=== PATIENT | male | born 1955 | race Caucasian/White ===

== ENCOUNTER → 2016-05-15 | Outpatient (CLI) | payer BC ==
[2016-05-15 07:50] LABS: Cholesterol 222 mg/dL (<200); HDL Cholesterol 36 mg/dL (40-60)
[2016-05-15 08:04] LABS: Triglycerides 634 mg/dL (<150)
== END ==
LOC: LABWHC1 06:54
PROVIDERS: ATTEND Internal Medicine Endocrinology, Diabetes & Metabolism
DX: E11.65 Type 2 diabetes mellitus with hyperglycemia (principal)
CPT/HCPCS: 36415; 80061

== ENCOUNTER → 2016-12-29 | Outpatient (CLI) | payer BC ==
[2016-12-29 09:05] LABS: Cholesterol 217 mg/dL (<200); Glucose 199 mg/dL (74-99); Total Protein 7.5 g/dL (6.3-8.2)
[2016-12-29 09:06] LABS: ALT 36 U/L (21-72); AST 22 U/L (17-59); Alkaline Phosphatase 99 U/L (38-126); Anion Gap 10 mmol/L; Blood Urea Nitrogen 18 mg/dL (9-20); Calcium 10.2 mg/dL (8.4-10.2); Carbon Dioxide 24 mmol/L (22-30); Chloride 104 mmol/L (98-107); HDL Cholesterol 37 mg/dL (40-60); Non-African American GFR(MDRD) >60 (>60 ml/min/1.73 sqM); Potassium 5.4 mmol/L (3.5-5.1); Sodium 138 mmol/L (137-145); Total Bilirubin 0.3 mg/dL (0.2-1.3)
[2016-12-29 16:45] LABS: Urine Creatinine 72.8 mg/dL
== END | disposition home or self-care (01) ==
LOC: LABWHC1 08:20
PROVIDERS: ATTEND Internal Medicine Endocrinology, Diabetes & Metabolism
DX: E11.65 Type 2 diabetes mellitus with hyperglycemia (principal)
CPT/HCPCS: 36415; 80053; 80061; 82043; 82570

== ENCOUNTER → 2017-05-08 | Outpatient (CLI) | payer OTHER ==
[2017-05-08 08:28] LABS: ALT 33 U/L (21-72); AST 28 U/L (17-59); Albumin 4.2 g/dL (3.5-5.0); Alkaline Phosphatase 137 U/L (38-126); Anion Gap 12 mmol/L; Blood Urea Nitrogen 11 mg/dL (9-20); Calcium 9.8 mg/dL (8.4-10.2); Carbon Dioxide 22 mmol/L (22-30); Chloride 104 mmol/L (98-107); Cholesterol 186 mg/dL (<200); Glucose 219 mg/dL (74-99); HDL Cholesterol 28 mg/dL (40-60); Potassium 4.8 mmol/L (3.5-5.1); Sodium 138 mmol/L (137-145); Total Bilirubin 0.2 mg/dL (0.2-1.3); Total Protein 6.9 g/dL (6.3-8.2)
[2017-05-08 08:41] LABS: Triglycerides 563 mg/dL (<150)
[2017-05-08 18:35] LABS: Hemoglobin A1C 8.8 % (4.0-6.0)
== END | disposition home or self-care (01) ==
LOC: LABWHC1 07:18
PROVIDERS: ATTEND Internal Medicine Endocrinology, Diabetes & Metabolism
DX: E11.65 Type 2 diabetes mellitus with hyperglycemia (principal); I10 Essential (primary) hypertension
CPT/HCPCS: 36415; 80053; 80061; 82043; 82570; 83036

== ENCOUNTER 2017-09-01 13:52 | Emergency (ER) | payer OTHER ==
[2017-09-01 14:11] VITALS: RESP 18
[2017-09-01] MEDS ORDERED: FAMOTIDINE 20 MG/2 ML VIAL IV STA (14:30)
[2017-09-01] MEDS ORDERED: diphenhydrAMINE 50 MG/ML 1 ML VIAL IVP STA (14:30)
[2017-09-01] MEDS ORDERED: SODIUM CHLORIDE 0.9% 500 ML IV STA (14:31)
--- NOTE | 2017-09-01 14:35 | ED ---
General Adult HPI - General Chief complaint: Recheck/Abnormal Lab/Rx Stated complaint: Bee sting/Rash/cant hear Source: patient Mode of arrival: ambulatory Limitations: no limitations - History of Present Illness Initial comments: Dictation was produced using [employer] dictation software. please excuse any grammatical, word or spelling errors. Chief Complaint: 61-year-old male with past medical history of bee venom ALLERGY presents after bee sting. History of Present Illness: Patient is a 61-year-old male who was stung by a bee earlier today while working outdoors. Patient is ALLERGIC to be stings. He states he was stung by a bee last year where he expense a severe reaction. He was told he was supposed to get an EpiPen however has not gotten 1. Today he was working outdoors By the Bee. Patient Began Having Urticarial Rash That Was Pruritic. He Was Stung on the Leg. He Went to Urgent Care Prior to Arriving Here Where He Was Given 125 Mg of IM Solu-Medrol Told to Come Here for Tachycardia. Patient Denies Any Shortness of Breath. Denies Any Lightheadedness. Denies Ever Having Had anaphylaxis after the sting in the past. The ROS documented in this emergency department record has been reviewed and confirmed by me. Those systems with pertinent positive or negative responses have been documented in the HPI. All other systems are other negative and/or noncontributory. - Related Data Home Medications Medication Instructions Recorded Confirmed INSULIN LISPRO (HumaLOG) [HumaLOG] 10 units SQ AC-TID 09/01/17 09/01/17 Insulin Glargine,Hum.rec.anlog 52 unit SQ HS 09/01/17 09/01/17 [Lantus Solostar] Lisinopril [Zestril] 20 mg PO DAILY 09/01/17 09/01/17 Pioglitazone HCl [Actos] 15 mg PO DAILY 09/01/17 09/01/17 metFORMIN HCL [Glucophage] 500 mg PO BID 09/01/17 09/01/17 Previous Rx's Medication Instructions Recorded EPINEPHrine [Epipen 2-Leonardo] 0.3 mg IM ONCE PRN #1 pack 09/01/17 Allergies Allergy/AdvReac Type Severity Reaction Status Date / Time bee venom protein (honey bee) Allergy Rash/Hives Verified 09/01/17 14:24 Review of Systems ROS Statement: Those systems with pertinent positive or pertinent negative responses have been documented in the HPI. ROS Other: All systems not noted in ROS Statement are negative. Past Medical History Past Medical History: Diabetes Mellitus, Hyperlipidemia, Hypertension History of Any Multi-Drug Resistant Organisms: None Reported Past Surgical History: Orthopedic Surgery Additional Past Surgical History / Comment(s): carpal tunnel and trigger thumb release. Left index finger tip off. Past Psychological History: No Psychological Hx Reported Smoking Status: Current every day smoker Past Alcohol Use History: Rare Past Drug Use History: None Reported General Exam - General Exam Comments Initial Comments: PHYSICAL EXAM: General Impression: Alert and oriented x3, not in acute distress HEENT: Normocephalic atraumatic, extra-ocular movements intact, pupils equal and reactive to light bilaterally, mucous membranes moist. Cardiovascular: Heart regular rate and rhythm, S1&S2 audible, no murmurs, rubs or gallops Chest: Lungs clear to auscultation bilaterally, no rhonchi, no wheeze, no rales Abdomen: Bowel sounds present, abdomen soft, non-tender, non-distended, no organomegaly Musculoskeletal: Pulses present and equal in all extremities, no peripheral edema Motor: Power 5/5 bilaterally, no focal deficits noted Neurological: CN II-XII grossly intact, no focal motor or sensory deficits noted Skin: Diffuse urticarial rash over extremities, abdomen and back Psych: Normal affect and mood Limitations: no limitations Course Vital Signs 09/01/17 09/01/17 09/01/17 14:06 14:22 14:48 Temperature 98.2 F Pulse Rate 123 H 111 H Respiratory 18 18 18 Rate Blood Pressure 106/71 O2 Sat by Pulse 97 97 Oximetry Medical Decision Making - Medical Decision Making ED course: 61-year-old male presenting with ALLERGIC reaction after bee sting. He was given corticosteroids at urgent care prior to arrival. He was told to come to the emergency department for tachycardia. Vital signs upon arrival shows heart rate of 123, blood pressure 106/71, respiratory signs within normal limits. Patient is well-appearing at this time. Patient not showing any signs of anaphylactic shock. No wheezing, no upper airway compromise, no stridulous breathing, blood pressure is within acceptable limits. He is mentating properly. EpiPen will be withheld at this time. He will receive antihistamine IV medications and intravenous fluids. Patient be observed in emergency department for improvement of symptoms. Patient reevaluated and found to have improved skin examination. Patient feels well. Patient's heart rate is improved to the 100s. Patient states that he has not been drinking water and has been working outdoors and tachycardia likely to be multifactorial secondary to dehydration. Patient told to hydrate himself appropriately at home. He is not nauseous and tolerate fluids at home. Patient prescription for EpiPen. He is counseled on appropriate administration. Patient warned of delayed ALLERGIC reaction should he experience any symptoms of anaphylaxis to return to the emergency department. Told to avoid bees. Disposition Clinical Impression: Allergic reaction Disposition: HOME SELF-CARE Condition: Good Instructions: Insect Bite or Sting (ED) Prescriptions: EPINEPHrine [Epipen 2-Leonardo] 0.3 mg IM ONCE PRN #1 pack PRN Reason: Anaphylaxis Is patient prescribed a controlled substance at d/c from ED?: No Referrals: Blake Hough MD [Primary Care Provider] - 1-2 days Time of Disposition: 15:54
[2017-09-01 16:16] VITALS: BP 119/55; PULSE 110; TEMP 98.9
== END 2017-09-01 16:14 | disposition home or self-care (01) ==
LOC: EC 13:52
DX: T63.441A Toxic effect of venom of bees, accidental (unintentional), initial encounter (principal); L50.9 Urticaria, unspecified; I10 Essential (primary) hypertension; E11.9 Type 2 diabetes mellitus without complications; F17.200 Nicotine dependence, unspecified, uncomplicated; Z79.4 Long term (current) use of insulin; Z79.899 Other long term (current) drug therapy; Z91.018 Allergy to other foods; Y93.89 Activity, other specified; Y92.89 Other specified places as the place of occurrence of the external cause
CPT/HCPCS: 99282; 96374; 96375; 96361; J1200

== ENCOUNTER → 2018-04-05 | Outpatient (CLI) | payer OTHER ==
[2018-04-05 12:09] LABS: ALT 26 U/L (10-49); AST 23 U/L (14-35); Albumin/Globulin Ratio 2.19 (1.60-3.17); Alkaline Phosphatase 77 U/L (41-126); Calcium 9.5 mg/dL (8.7-10.3); Carbon Dioxide 27.5 mmol/L (21.6-31.8); Chloride 104 mmol/L (96-109); Cholesterol 214 mg/dL (0-200); Globulin 2.1 g/dL (1.6-3.3); Glucose 156 mg/dL (70-110); Potassium 4.5 mmol/L (3.5-5.5); Sodium 138 mmol/L (135-145); Total Bilirubin 0.4 mg/dL (0.3-1.2); Total Protein 6.7 g/dL (6.2-8.2)
[2018-04-05 13:40] LABS: Hemoglobin A1C 8.3 % (4.0-6.0)
== END ==
LOC: LABWHC1 07:08
PROVIDERS: ATTEND Internal Medicine Endocrinology, Diabetes & Metabolism
DX: E11.65 Type 2 diabetes mellitus with hyperglycemia (principal)
CPT/HCPCS: 36415; 80053; 80061; 82043; 82570; 83036; 83721; 84443

== ENCOUNTER → 2018-11-22 | Outpatient (CLI) | payer OTHER ==
[2018-11-22 17:21] LABS: Hemoglobin A1C 8.1 % (4.0-6.0)
[2018-11-22 17:45] LABS: Chol/HDL Ratio 4.97; LDL Cholesterol,Calculated 62.2 mg/dL (0.0-131.0); VLDL Calculation 68.8 mg/dL (5.00-40.00)
== END | disposition home or self-care (01) ==
LOC: LABWHC1 07:21
PROVIDERS: ATTEND Internal Medicine Endocrinology, Diabetes & Metabolism
DX: E11.65 Type 2 diabetes mellitus with hyperglycemia (principal)
CPT/HCPCS: 36415; 80061; 83036

== ENCOUNTER → 2019-01-13 | Outpatient (CLI) | payer OTHER ==
--- NOTE | 2019-01-13 07:32 | US ---
EXAMINATION TYPE: US kidneys/renal and bladder DATE OF EXAM: 01/13/2019 COMPARISON: NONE CLINICAL HISTORY: R31.9 HEMATURIA. Microscopic hematuria EXAM MEASUREMENTS: Right Kidney: 11.1 x 4.4 x 3.9 cm Left Kidney: 11.4 x 5.9 x 4.6 cm Right Kidney: No hydronephrosis or masses seen Left Kidney: No hydronephrosis or masses seen Bladder: wnl Bilateral Jets seen: Yes When scanning right kidney adjacent liver is heterogeneously hyperechoic suggesting diffuse fatty inf iltration. Correlation with liver enzymes advised. Both kidneys are well visualized. Cortical medulla ry differentiation is maintained. No hydronephrosis or concerning renal masses are present bilaterall y. Bladder is satisfactorily distended. Prominent prostate gland noted at the base, correlate for und erlying BPH. IMPRESSION: 1. Source of hematuria not identified, multiphase contrast-enhanced CT is advised if symptoms persist . 2. Probable fatty infiltration of liver, clinical and lab correlation advised. 3. Possible BPH, clinical correlation advised.
== END | disposition home or self-care (01) ==
LOC: RADUSWWP 06:58
PROVIDERS: ATTEND Family Medicine
DX: R31.9 Hematuria, unspecified (principal)
CPT/HCPCS: 76770

== ENCOUNTER 2019-08-14 21:38 | Emergency (ER) | payer OTHER ==
[2019-08-14 21:48] VITALS: BP 185/85; PULSE 103; RESP 18; TEMP 98.2
[2019-08-14] MEDS ORDERED: predniSONE 50 MG TAB PO STA (23:24)
[2019-08-14] MEDS ORDERED: FAMOTIDINE 20 MG TAB PO STA (23:24)
--- NOTE | 2019-08-14 23:26 | ED ---
General Adult HPI - General Chief complaint: Allergic Reaction Stated complaint: Allergic Reaction to bee sting Time Seen by Provider: 08/14/19 22:51 Source: patient Mode of arrival: ambulatory Limitations: no limitations - History of Present Illness Initial comments: 63-year-old female patient presents to the emergency department today for evaluation of left hand and arm swelling. Patient was stung by a "paper wasp" in his right lower leg and his left hand today. The initial sting in the leg happened around 9:30 this morning and in the arm around 4:30. Patient states that he did take Benadryl. States he had immediate onset of swelling to the left hand. States throughout the evening the swelling has extended up to the forearm. Patient is reporting mild pain to the area. He denies any lip swelling, tongue swelling, throat swelling, difficulty breathing, or abdominal pain. Patient does report a history of ALLERGIC reaction to bee stings. States he has had facial swelling in the past but not with this incident. He denies any fever or chills with this. Patient denies any recent rash, cough, shortness of breath, chest pain, nausea, vomiting, diarrhea, constipation, back pain, numbness, tingling, dizziness, weakness, hematuria, dysuria, urinary urgency, urinary frequency, headache, visual changes, or any other complaints. - Related Data Home Medications Medication Instructions Recorded Confirmed INSULIN LISPRO (HumaLOG) [HumaLOG] 10 units SQ AC-TID 09/01/17 09/01/17 Insulin Glargine,Hum.rec.anlog 52 unit SQ HS 09/01/17 09/01/17 [Lantus Solostar] Lisinopril [Zestril] 20 mg PO DAILY 09/01/17 09/01/17 Pioglitazone HCl [Actos] 15 mg PO DAILY 09/01/17 09/01/17 metFORMIN HCL [Glucophage] 500 mg PO BID 09/01/17 09/01/17 Previous Rx's Medication Instructions Recorded EPINEPHrine [Epipen 2-Leonardo] 0.3 mg IM ONCE PRN #1 pack 09/01/17 EPINEPHrine (Auto Inject) [Epipen] 0.3 mg IM ONCE PRN #2 pen 08/14/19 Famotidine [Pepcid] 20 mg PO DAILY #3 tablet 08/14/19 predniSONE 50 mg PO DAILY #3 tab 08/14/19 Allergies Allergy/AdvReac Type Severity Reaction Status Date / Time bee venom protein (honey bee) Allergy Rash/Hives Verified 09/01/17 14:24 Review of Systems ROS Statement: Those systems with pertinent positive or pertinent negative responses have been documented in the HPI. ROS Other: All systems not noted in ROS Statement are negative. Past Medical History Past Medical History: Diabetes Mellitus, Hyperlipidemia, Hypertension History of Any Multi-Drug Resistant Organisms: None Reported Past Surgical History: Orthopedic Surgery Additional Past Surgical History / Comment(s): carpal tunnel and trigger thumb release. Left index finger tip off. Past Psychological History: No Psychological Hx Reported Smoking Status: Current every day smoker Past Alcohol Use History: Rare Past Drug Use History: None Reported General Exam Limitations: no limitations General appearance: alert, in no apparent distress, other (This is a well- developed, well-nourished adult male patient in no acute distress. Vital signs upon presentation are temperature 98.2F, pulse 103, respirations 18, blood pressure 185/85, pulse ox 96% on room air.) Eye exam: Present: normal appearance, PERRL, EOMI. Absent: scleral icterus, conjunctival injection, periorbital swelling ENT exam: Present: normal exam, normal oropharynx, mucous membranes moist Respiratory exam: Present: normal lung sounds bilaterally. Absent: respiratory distress, wheezes, rales, rhonchi, stridor Cardiovascular Exam: Present: regular rate, normal rhythm, normal heart sounds. Absent: systolic murmur, diastolic murmur, rubs, gallop, clicks GI/Abdominal exam: Present: soft, normal bowel sounds. Absent: distended, tenderness, guarding, rebound, rigid Extremities exam: Present: full ROM, normal capillary refill, other (Patient has swelling, erythema noted over the dorsal aspect of the left hand and about correction up the forearm. Skin is otherwise pink, warm, dry. Cap refills less than 3 seconds. Radial pulses 2+ and equal bilaterally.). Absent: normal inspection, tenderness, pedal edema, joint swelling, calf tenderness Neurological exam: Present: alert, oriented X3, CN II-XII intact Psychiatric exam: Present: normal affect, normal mood Skin exam: Present: warm, dry, intact, normal color. Absent: rash Course Vital Signs 08/14/19 08/14/19 21:39 22:42 Temperature 98.2 F Pulse Rate 103 H Respiratory 18 18 Rate Blood Pressure 185/85 O2 Sat by Pulse 96 Oximetry Medical Decision Making - Medical Decision Making 63-year-old male patient presents to the emergency department today for evaluation of swelling to the left hand and forearm after being stung by a wasp. Physical examination did reveal soft tissue swelling, erythema to the dorsal aspect of the left hand and about correction up the left forearm. Neurovascular status is intact. He is afebrile, no lip or tongue swelling, no reports of dyspnea or abdominal pain. We will give patient prednisone and Pepcid here in the department. He does have Benadryl he is taking at home. He'll be discharged with prescription for both the prednisone and the Pepcid. As he has had history of facial swelling and shortness of breath with bee stings we will give her EpiPen he is given education regarding its use. He'll be discharged to follow-up with his primary care physician for recheck in 1-2 days. Return parameters were discussed in detail. He verbalizes understanding and agrees with this plan. Disposition Clinical Impression: Wasp sting Disposition: HOME SELF-CARE Condition: Good Instructions (If sedation given, give patient instructions): Insect Bite or S ting (ED) Additional Instructions: Apply cool compresses over the sting sites. Take medications as directed. Follow-up with your primary care physician for recheck in 1-2 days. Return to the emergency department immediately for any new, worsening, or concerning symptoms. Prescriptions: EPINEPHrine (Auto Inject) [Epipen] 0.3 mg IM ONCE PRN #2 pen PRN Reason: Anaphylaxis Famotidine [Pepcid] 20 mg PO DAILY #3 tablet predniSONE 50 mg PO DAILY #3 tab Is patient prescribed a controlled substance at d/c from ED?: No Referrals: Blake Hough MD [Primary Care Provider] - 1-2 days Time of Disposition: 23:26
== END 2019-08-14 23:34 | disposition home or self-care (01) ==
LOC: EC 21:38
DX: T63.441A Toxic effect of venom of bees, accidental (unintentional), initial encounter (principal); E11.9 Type 2 diabetes mellitus without complications; I10 Essential (primary) hypertension; F17.200 Nicotine dependence, unspecified, uncomplicated; Z79.899 Other long term (current) drug therapy; Z79.4 Long term (current) use of insulin; Z79.84 Long term (current) use of oral hypoglycemic drugs; Z91.030 Bee allergy status
CPT/HCPCS: 99283; J7512

== ENCOUNTER → 2020-07-19 | Outpatient (CLI) | payer OTHER ==
[2020-07-19 19:15] LABS: Hemoglobin A1C 8.2 % (4.0-6.0)
[2020-07-20 03:27] LABS: Urine Creatinine 102.4 mg/dL
[2020-07-20 05:39] LABS: African American GFR (CKD) 81.2 (60.0-200.0); Albumin 4.5 g/dL (3.80-4.90); Albumin/Globulin Ratio 2.14 (1.60-3.17); Anion Gap 12.9 mmol/L (4.00-12.00); Calcium 9.6 mg/dL (8.7-10.3); Carbon Dioxide 20.1 mmol/L (21.6-31.8); Chol/HDL Ratio 4.71; Globulin 2.1 g/dL (1.6-3.3); LDL Cholesterol,Calculated 58.6 mg/dL (0.0-131.0); Non-African American GFR(CKD) 70.1 (60.0-200.0); Potassium 4.6 mmol/L (3.5-5.5); Total Bilirubin 0.2 mg/dL (0.3-1.2); Total Protein 6.6 g/dL (6.2-8.2); VLDL Calculation 45.4 mg/dL (5.00-40.00)
== END | disposition home or self-care (01) ==
LOC: LABWHC1 07:03
PROVIDERS: ATTEND Internal Medicine Endocrinology, Diabetes & Metabolism
DX: E11.65 Type 2 diabetes mellitus with hyperglycemia (principal)
CPT/HCPCS: 36415; 80053; 80061; 82043; 82570; 83036; 84443

== ENCOUNTER → 2021-02-20 | Outpatient (CLI) | payer OTHER ==
[2021-02-20 11:53] LABS: ALT 25 U/L (10-49); AST 21 U/L (14-35); African American GFR (CKD) 102.8 (60.0-200.0); Albumin 4.7 g/dL (3.8-4.9); Albumin/Globulin Ratio 1.96 (1.60-3.17); Alkaline Phosphatase 78 U/L (41-126); BUN/Creat Ratio 22.33 Ratio (12.00-20.00); Blood Urea Nitrogen 20.1 mg/dL (9.0-27.0); Calcium 9.7 mg/dL (8.7-10.3); Carbon Dioxide 21.3 mmol/L (20.0-27.5); Chloride 101 mmol/L (96-109); Chol/HDL Ratio 4.48 Ratio; Globulin 2.4 g/dL (1.6-3.3); Glucose 212 mg/dL (70-110); LDL Cholesterol,Calculated 51.7 mg/dL (0.0-131.0); Non-African American GFR(CKD) 88.7 (60.0-200.0); Potassium 4.9 mmol/L (3.5-5.5); Sodium 134 mmol/L (135-145); Total Protein 7.1 g/dL (6.2-8.2)
[2021-02-20 19:28] LABS: Urine Creatinine 75.4 mg/dL (39.0-259.0)
[2021-02-23 01:07] LABS: Microalbumin Creatinine Ratio <30 mg/g Creat (0-30)
== END | disposition home or self-care (01) ==
LOC: LABWHC1 07:41
PROVIDERS: ATTEND Internal Medicine Endocrinology, Diabetes & Metabolism
DX: E11.65 Type 2 diabetes mellitus with hyperglycemia (principal)
CPT/HCPCS: 36415; 80053; 80061; 82043; 82570; 83036; 84443

== ENCOUNTER → 2021-03-26 | Outpatient (CLI) | payer OTHER ==
[2021-03-26 11:29] LABS: Basophils # (A) 0.07 X 10*3/uL (0.00-0.10); Basophils % (A) 0.9 %; Eosinophils # (A) 0.41 X 10*3/uL (0.04-0.35); Eosinophils % (A) 5.4 %; HCT 45.7 % (39.6-50.0); Immature Grans, Automated 0.7 %; Lymphocytes # (A) 2.41 X 10*3/uL (0.90-5.00); Lymphocytes % (A) 31.8 %; MCH 27.9 pg (27.0-32.0); MCHC 32.8 g/dL (32.0-37.0); MCV 84.9 fL (80.0-97.0); Mean Platelet Volume 12.6 fL (9.5-12.2); Monocytes # (A) 0.57 X 10*3/uL (0.20-1.00); Monocytes % (A) 7.5 %; NRBC Per 100 WBC 0 /100 WBCS (0.0-0.0); Neutrophils # (A) 4.08 X 10*3/uL (1.80-7.70); Neutrophils % (A) 53.7 %; Platelet Count 214 X 10*3/uL (140-440); RBC 5.38 X 10*6/uL (4.40-5.60); RDW 13.3 % (11.5-14.5); WBC 7.59 X 10*3/uL (4.50-10.00)
[2021-03-26 15:28] LABS: ALT 27 U/L (10-49); AST 21 U/L (14-35); African American GFR (CKD) 100.6 (60.0-200.0); Albumin 4.6 g/dL (3.8-4.9); Albumin/Globulin Ratio 2.07 (1.60-3.17); Alkaline Phosphatase 69 U/L (41-126); BUN/Creat Ratio 16.16 Ratio (12.00-20.00); Blood Urea Nitrogen 14.8 mg/dL (9.0-27.0); Calcium 9.7 mg/dL (8.7-10.3); Carbon Dioxide 21.5 mmol/L (20.0-27.5); Chloride 103 mmol/L (96-109); Chol/HDL Ratio 3.64 Ratio; Globulin 2.2 g/dL (1.6-3.3); Glucose 162 mg/dL (70-110); LDL Cholesterol,Calculated 48.4 mg/dL (0.0-131.0); Non-African American GFR(CKD) 86.8 (60.0-200.0); Potassium 5.2 mmol/L (3.5-5.5); Sodium 137 mmol/L (135-145); Total Protein 6.8 g/dL (6.2-8.2)
== END | disposition home or self-care (01) ==
LOC: LABWHC1 07:16
PROVIDERS: ATTEND Family Medicine
DX: Z12.5 Encounter for screening for malignant neoplasm of prostate (principal); I10 Essential (primary) hypertension; E78.00 Pure hypercholesterolemia, unspecified; E55.9 Vitamin D deficiency, unspecified; E11.9 Type 2 diabetes mellitus without complications
CPT/HCPCS: 36415; 80053; 80061; 82306; 83036; 84153; 84443; 85025

== ENCOUNTER → 2021-07-22 | Outpatient (CLI) | payer OTHER, MEDICARE ==
[2021-07-22 09:05] LABS: African American GFR (CKD) >90 (>60 ml/min/1.73 sqM); Blood Urea Nitrogen 19 mg/dL (9-20); Non-African American GFR(CKD) 82 (>60 ml/min/1.73 sqM)
--- NOTE | 2021-07-22 12:00 | CT ---
EXAMINATION TYPE: CT soft tissue neck w con DATE OF EXAM: 07/22/2021 9:41 AM COMPARISON: CT dated 05/17/2021 HISTORY: Parotid nodule, follow-up. Other diseases of salivary glands. CT DLP: 692 mGycm Automated exposure control for dose reduction was used. CONTRAST: CT scan of the neck is performed following with IV Contrast, patient injected with 70 mL of Isovue 30 0. Axial images are obtained, coronal and sagittal reformatted images are reviewed. FINDINGS: Redemonstration of the previously multiple variable sized bilateral parotid gland soft tissue lesions measuring up to 2.3 cm on the right side and 1.9 cm on the left side without interval progression, i nternal calcification or necrosis. This could represent prominent lymph nodes however other neoplasti c process like Warthin's tumors cannot be excluded. Further PET scan assessment/tissue diagnosis can be considered. Unremarkable symmetrical submandibular salivary glands. Unremarkable thyroid gland. Again noted is th e well-defined cyst within the left vallecula measuring up to 2.2 cm, grossly stable and could repres ent a retention cyst. Unremarkable remainder of the pharynx, larynx, visualized portion of the trache a and esophagus. No other pathologically enlarged cervical or submandibular lymph nodes. Scattered arterial atheroscle rotic calcifications. Degenerative changes of the lower cervical spine. Minimal opacification of the inferior mastoid air cells. IMPRESSION: 1. Interval stability of the previously seen bilateral parotid gland soft tissue nodules which could represent persistent lymph nodes however other neoplastic lesions like Warthin's tumors cannot be exc luded. Further PET scan assessment/tissue diagnosis can be considered. 2. Stable well-defined cyst within the left vallecula which could represent a retention cyst. Recomme nd ENT consultation. Other findings as described above.
== END | disposition home or self-care (01) ==
LOC: RADCTMAIN 08:10
PROVIDERS: ATTEND Otolaryngology
DX: R22.1 Localized swelling, mass and lump, neck (principal)
CPT/HCPCS: 82565; 84520; 70491; 36415; Q9967

== ENCOUNTER 2021-08-11 08:47 | Day surgery (SDC) | payer OTHER, MEDICARE ==
--- NOTE | 2021-08-11 10:12 | US ---
ULTRASOUND GUIDED CORE BIOPSY BILATERAL PAROTID NODULES: CLINICAL HISTORY: Bilateral parotid masses FINDINGS: The procedure was explained to the patient. The risks, complications, benefits and alternatives were discussed and any questions were answered. Informed consent was obtained. Patient was placed supin e on the ultrasound table and prepped and draped in the usual sterile fashion. Utilizing a 18 gauge needle, two passes were made into the right and subsequently the left requested parotid nodules. Patient was stable throughout the procedure. Pathology is pending. All elements of maximal barrier technique were utilized. IMPRESSION: 1. Successful ultrasound guided bilateral core biopsy parotid nodules.
[2021-08-11 10:14] VITALS: RESP 16; TEMP 98.5
[2021-08-11 10:15] VITALS: BP 136/75; PULSE 95
== END 2021-08-11 10:15 | disposition home or self-care (01) ==
LOC: RADPROMAIN 08:47
PROVIDERS: ATTEND Otolaryngology
DX: K11.8 Other diseases of salivary glands (principal); Z88.0 Allergy status to penicillin; Z88.8 Allergy status to other drugs, medicaments and biological substances; Z91.030 Bee allergy status; Z79.4 Long term (current) use of insulin; Z79.899 Other long term (current) drug therapy; F17.200 Nicotine dependence, unspecified, uncomplicated
CPT/HCPCS: 42400; 76942; 88305

== ENCOUNTER → 2021-09-15 | Outpatient (CLI) | payer OTHER, MEDICARE ==
[2021-09-15 15:05] LABS: Anion Gap 10.4 mmol/L (10.00-18.00); Carbon Dioxide 21.9 mmol/L (20.0-27.5); Potassium 4.2 mmol/L (3.5-5.5)
== END | disposition home or self-care (01) ==
LOC: LABWHC1 08:56
PROVIDERS: ATTEND Otolaryngology
DX: E11.9 Type 2 diabetes mellitus without complications (principal); R94.31 Abnormal electrocardiogram [ECG] [EKG]
CPT/HCPCS: 36415; 80051; 82947; 93005

== ENCOUNTER → 2022-01-30 | Outpatient (CLI) | payer OTHER, MEDICARE ==
[2022-01-30 12:33] LABS: ALT 22 U/L (10-49); AST 18 U/L (14-35); African American GFR (CKD) 89.9 (60.0-200.0); Albumin 4.7 g/dL (3.8-4.9); Albumin/Globulin Ratio 2.24 (1.60-3.17); Alkaline Phosphatase 74 U/L (41-126); Blood Urea Nitrogen 17.4 mg/dL (9.0-27.0); Calcium 10.1 mg/dL (8.7-10.3); Carbon Dioxide 24.4 mmol/L (20.0-27.5); Chloride 100 mmol/L (96-109); Globulin 2.1 g/dL (1.6-3.3); Glucose 189 mg/dL (70-110); LDL Cholesterol,Calculated 65.8 mg/dL (0.0-131.0); Non-African American GFR(CKD) 77.5 (60.0-200.0); Potassium 5.4 mmol/L (3.5-5.5); Sodium 135 mmol/L (135-145); Total Protein 6.8 g/dL (6.2-8.2)
[2022-01-30 22:06] LABS: Microalbumin Creatinine Ratio <30 mg/g Creat (0-30)
== END | disposition home or self-care (01) ==
LOC: LABWHC1 07:42
PROVIDERS: ATTEND Internal Medicine Endocrinology, Diabetes & Metabolism
DX: E11.65 Type 2 diabetes mellitus with hyperglycemia (principal)
CPT/HCPCS: 36415; 80053; 80061; 82043; 82570; 83036; 84443

== ENCOUNTER → 2022-05-04 | Outpatient (CLI) | payer OTHER, MEDICARE ==
[2022-05-04 15:05] LABS: ALT 20 U/L (10-49); AST 21 U/L (14-35); African American GFR (CKD) 79.2 (60.0-200.0); Albumin 4.8 g/dL (3.8-4.9); Albumin/Globulin Ratio 1.98 (1.60-3.17); Alkaline Phosphatase 60 U/L (41-126); BUN/Creat Ratio 19.55 Ratio (12.00-20.00); Blood Urea Nitrogen 21.7 mg/dL (9.0-27.0); Calcium 9.9 mg/dL (8.7-10.3); Carbon Dioxide 23.7 mmol/L (20.0-27.5); Chloride 106 mmol/L (96-109); Chol/HDL Ratio 4.02 Ratio; Globulin 2.4 g/dL (1.6-3.3); Glucose 111 mg/dL (70-110); LDL Cholesterol,Calculated 69.3 mg/dL (0.0-131.0); Non-African American GFR(CKD) 68.3 (60.0-200.0); Potassium 4.8 mmol/L (3.5-5.5); Sodium 139 mmol/L (135-145); Total Protein 7.2 g/dL (6.2-8.2)
[2022-05-04 19:35] LABS: Microalbumin Creatinine Ratio <30 mg/g Creat (0-30); Urine Creatinine 83.2 mg/dL (39.0-259.0)
== END | disposition home or self-care (01) ==
LOC: LABWHC1 07:49
PROVIDERS: ATTEND Internal Medicine Endocrinology, Diabetes & Metabolism
DX: E11.65 Type 2 diabetes mellitus with hyperglycemia (principal)
CPT/HCPCS: 36415; 80053; 80061; 82043; 82570; 83036; 84443

== ENCOUNTER → 2022-07-31 | Outpatient (CLI) | payer OTHER, MEDICARE ==
[2022-07-31 16:09] LABS: ALT 22 U/L (10-49); AST 19 U/L (14-35); Albumin 4.7 d/dL (3.8-4.9); Albumin/Globulin Ratio 1.96 Ratio (1.60-3.17); Alkaline Phosphatase 84 U/L (41-126); Blood Urea Nitrogen 17.1 mg/dL (9.0-27.0); Calcium 10.3 mg/dL (8.7-10.3); Carbon Dioxide 20.5 mmol/L (21.6-31.8); Chloride 104 mmol/L (96-109); Chol/HDL Ratio 4.42 Ratio; Globulin 2.4 d/dL (1.6-3.3); Glucose 145 mg/dL (70-110); LDL Cholesterol,Calculated 18.4 mg/dL (0.0-131.0); Potassium 4.5 mmol/L (3.5-5.5); Sodium 137 mmol/L (135-145); Total Bilirubin 0.2 mg/dL (0.3-1.2); Total Protein 7.1 d/dL (6.2-8.2)
== END | disposition home or self-care (01) ==
LOC: LABWHC1 06:59
PROVIDERS: ATTEND Internal Medicine Endocrinology, Diabetes & Metabolism
DX: E11.65 Type 2 diabetes mellitus with hyperglycemia (principal)
CPT/HCPCS: 36415; 80053; 80061; 82043; 82570; 83036; 84443

== ENCOUNTER → 2023-01-01 | Outpatient (CLI) | payer OTHER, MEDICARE ==
[2023-01-01 16:08] LABS: Chol/HDL Ratio 3.14 Ratio; LDL Cholesterol,Calculated 47.4 mg/dL (0.0-131.0)
[2023-01-01 16:09] LABS: ALT 23 U/L (10-49); AST 18 U/L (14-35); Albumin 4.8 g/dL (3.8-4.9); Albumin/Globulin Ratio 2.09 Ratio (1.60-3.17); Alkaline Phosphatase 74 U/L (41-126); BUN/Creat Ratio 19.78 Ratio (12.00-20.00); Blood Urea Nitrogen 17.8 mg/dL (9.0-27.0); Calcium 10.1 mg/dL (8.7-10.3); Carbon Dioxide 23.1 mmol/L (21.6-31.8); Chloride 106 mmol/L (96-109); Globulin 2.3 g/dL (1.6-3.3); Glucose 122 mg/dL (70-110); Potassium 5.2 mmol/L (3.5-5.5); Sodium 140 mmol/L (135-145); Total Bilirubin <0.2 mg/dL (0.3-1.2); Total Protein 7.1 g/dL (6.2-8.2)
[2023-01-01 17:43] LABS: Microalbumin Creatinine Ratio <15 mg/g Cr (0-30); Urine Creatinine 78.2 mg/dL (39.0-259.0)
== END | disposition home or self-care (01) ==
LOC: LABWHC1 06:53
PROVIDERS: ATTEND Internal Medicine Endocrinology, Diabetes & Metabolism
DX: E11.65 Type 2 diabetes mellitus with hyperglycemia (principal)
CPT/HCPCS: 36415; 80053; 80061; 82043; 82570; 83036; 84443

== ENCOUNTER → 2023-02-25 | Outpatient (CLI) | payer MEDICARE, OTHER ==
[2023-02-25 10:51] LABS: Basophils # (A) 0.08 X 10*3/uL (0.00-0.10); Basophils % (A) 0.7 %; Eosinophils # (A) 0.28 X 10*3/uL (0.04-0.35); Eosinophils % (A) 2.6 %; HCT 48.3 % (39.6-50.0); HGB 15.9 g/dL (13.0-17.0); Lymphocytes # (A) 2.34 X 10*3/uL (0.90-5.00); Lymphocytes % (A) 21.5 %; MCH 28.1 pg (27.0-32.0); MCHC 32.9 g/dL (32.0-37.0); MCV 85.5 FL (80.0-97.0); Monocytes # (A) 0.88 X 10*3/uL (0.20-1.00); Monocytes % (A) 8.1 %; NRBC Per 100 WBC 0 X 10*3/uL (0.00-0.01); Neutrophils # (A) 7.23 X 10*3/uL (1.80-7.70); Neutrophils % (A) 66.5 %; Platelet Count 217 X 10*3/uL (140-440); RBC 5.65 X 10*6/uL (4.40-5.60); WBC 10.87 X 10*3/uL (4.50-10.00)
[2023-02-25 11:32] LABS: ALT 18 U/L (10-49); AST 17 U/L (14-35); Albumin 4.4 g/dL (3.8-4.9); Albumin/Globulin Ratio 1.83 Ratio (1.60-3.17); Alkaline Phosphatase 70 U/L (41-126); BUN/Creat Ratio 15.45 Ratio (12.00-20.00); Calcium 9.9 mg/dL (8.7-10.3); Carbon Dioxide 21.3 mmol/L (21.6-31.8); Chloride 105 mmol/L (96-109); Chol/HDL Ratio 3.24 Ratio; Globulin 2.4 g/dL (1.6-3.3); Glucose 186 mg/dL (70-110); LDL Cholesterol,Calculated 34.9 mg/dL (0.0-131.0); Potassium 4.7 mmol/L (3.5-5.5); Sodium 139 mmol/L (135-145); Total Bilirubin 0.3 mg/dL (0.3-1.2); Total Protein 6.8 g/dL (6.2-8.2)
== END | disposition home or self-care (01) ==
LOC: LABWHC1 06:54
PROVIDERS: ATTEND Family Medicine
DX: Z00.00 Encounter for general adult medical examination without abnormal findings (principal); Z12.5 Encounter for screening for malignant neoplasm of prostate; I10 Essential (primary) hypertension; E55.9 Vitamin D deficiency, unspecified; E11.9 Type 2 diabetes mellitus without complications; E78.00 Pure hypercholesterolemia, unspecified
CPT/HCPCS: 80061; 80053; 84443; 85025; 82306; 83036; 36415; G0103

== ENCOUNTER → 2023-07-16 | Outpatient (CLI) | payer MEDICARE ==
[2023-07-16 11:35] LABS: ALT 15 U/L (10-49); AST 16 U/L (14-35); Albumin 4.6 g/dL (3.8-4.9); Albumin/Globulin Ratio 2.09 Ratio (1.60-3.17); Alkaline Phosphatase 69 U/L (41-126); Calcium 9.6 mg/dL (8.7-10.3); Carbon Dioxide 19.7 mmol/L (21.6-31.8); Chloride 111 mmol/L (96-109); Chol/HDL Ratio 3.15 Ratio; Globulin 2.2 g/dL (1.6-3.3); Glucose 151 mg/dL (70-110); Potassium 4.3 mmol/L (3.5-5.5); Sodium 144 mmol/L (135-145); Total Bilirubin <0.2 mg/dL (0.3-1.2); Total Protein 6.8 g/dL (6.2-8.2)
[2023-07-16 22:53] LABS: Microalbumin Creatinine Ratio <17 mg/g Cr (0-30); Urine Creatinine 69.7 mg/dL (39.0-259.0)
== END | disposition home or self-care (01) ==
LOC: LABWHC1 07:03
PROVIDERS: ATTEND Internal Medicine Endocrinology, Diabetes & Metabolism
DX: E11.65 Type 2 diabetes mellitus with hyperglycemia (principal)
CPT/HCPCS: 36415; 80053; 80061; 82043; 82570; 83036; 84443

== ENCOUNTER → 2023-10-13 | Outpatient (CLI) | payer MEDICARE ==
[2023-10-13 10:55] LABS: ALT 11 U/L (10-49); AST 17 U/L (14-35); Albumin 4.6 g/dL (3.8-4.9); Alkaline Phosphatase 73 U/L (41-126); Blood Urea Nitrogen 27.8 mg/dL (9.0-27.0); Calcium 9.5 mg/dL (8.7-10.3); Chloride 104 mmol/L (96-109); Chol/HDL Ratio 2.51 Ratio; Glucose 113 mg/dL (70-110); LDL Cholesterol,Calculated 25.1 mg/dL (0.0-131.0); Potassium 4.7 mmol/L (3.5-5.5); Sodium 137 mmol/L (135-145); Total Bilirubin 0.2 mg/dL (0.3-1.2); Total Protein 6.6 g/dL (6.2-8.2)
[2023-10-13 11:35] LABS: Microalbumin Creatinine Ratio <16 mg/g Cr (0-30); Urine Creatinine 76.7 mg/dL (39.0-259.0)
== END | disposition home or self-care (01) ==
LOC: LABWHC1 06:58
PROVIDERS: ATTEND Internal Medicine Endocrinology, Diabetes & Metabolism
DX: E11.65 Type 2 diabetes mellitus with hyperglycemia (principal); E55.9 Vitamin D deficiency, unspecified
CPT/HCPCS: 36415; 80053; 80061; 82043; 82306; 82570; 83036; 84443

== ENCOUNTER → 2024-04-26 | Outpatient (CLI) | payer MEDICARE ==
[2024-04-26 10:37] LABS: ALT 16 U/L (10-49); AST 22 U/L (14-35); Albumin 4.5 g/dL (3.8-4.9); Albumin/Globulin Ratio 1.88 Ratio (1.60-3.17); Alkaline Phosphatase 62 U/L (41-126); BUN/Creat Ratio 19.78 Ratio (12.00-20.00); Blood Urea Nitrogen 17.8 mg/dL (9.0-27.0); Calcium 9.9 mg/dL (8.7-10.3); Carbon Dioxide 22.8 mmol/L (21.6-31.8); Chloride 103 mmol/L (96-109); Chol/HDL Ratio 2.92 Ratio; Globulin 2.4 g/dL (1.6-3.3); Glucose 132 mg/dL (70-110); LDL Cholesterol,Calculated 48.2 mg/dL (0.0-131.0); Potassium 4.6 mmol/L (3.5-5.5); Sodium 137 mmol/L (135-145); Total Bilirubin 0.4 mg/dL (0.3-1.2); Total Protein 6.9 g/dL (6.2-8.2)
[2024-04-26 18:38] LABS: Microalbumin Creatinine Ratio <19 mg/g Cr (0-30); Urine Creatinine 63.5 mg/dL (39.0-259.0)
== END | disposition home or self-care (01) ==
LOC: LABWHC1 08:03
PROVIDERS: ATTEND Internal Medicine Endocrinology, Diabetes & Metabolism
DX: E11.65 Type 2 diabetes mellitus with hyperglycemia (principal)
CPT/HCPCS: 36415; 80053; 80061; 82043; 82570; 83036; 84443

== ENCOUNTER → 2024-07-31 | Outpatient (CLI) | payer MEDICARE ==
[2024-07-31 10:34] LABS: ALT 17 U/L (10-49); AST 20 U/L (14-35); Albumin 4.5 g/dL (3.8-4.9); Albumin/Globulin Ratio 1.73 Ratio (1.60-3.17); Alkaline Phosphatase 66 U/L (41-126); Calcium 9.7 mg/dL (8.7-10.3); Carbon Dioxide 20.7 mmol/L (21.6-31.8); Chloride 104 mmol/L (96-109); Chol/HDL Ratio 3.41 Ratio; Globulin 2.6 g/dL (1.6-3.3); Glucose 142 mg/dL (70-110); LDL Cholesterol,Calculated 58.8 mg/dL (0.0-131.0); Potassium 4.5 mmol/L (3.5-5.5); Sodium 136 mmol/L (135-145); Total Bilirubin 0.3 mg/dL (0.3-1.2); Total Protein 7.1 g/dL (6.2-8.2)
[2024-07-31 10:43] LABS: Microalbumin Creatinine Ratio <14 mg/g Cr (0-30); Urine Creatinine 88.4 mg/dL (39.0-259.0)
== END | disposition home or self-care (01) ==
LOC: LABWHC1 07:08
PROVIDERS: ATTEND Internal Medicine Endocrinology, Diabetes & Metabolism
DX: E11.65 Type 2 diabetes mellitus with hyperglycemia (principal)
CPT/HCPCS: 36415; 80053; 80061; 82043; 82570; 83036; 84443